=== PATIENT | female | born 1945 ===

== ENCOUNTER 2024-02-02 14:50 | Outpatient (AMB) | payer MEDICARE, SELFPAY ==
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
[2024-02-02 15:02] VITALS: BP 192/100; PULSE 75; TEMP 37.1; O2SAT 96; BMI 31.2
[2024-02-02 15:18] VITALS: BP 190/100
== END 2024-02-02 15:59 | disposition home or self-care (01) ==
PROVIDERS: PCP Internal Medicine; Visit Provider Physician Assistant
DX: I16.1 Hypertensive emergency (principal)
CPT/HCPCS: 93000; 99205

== ENCOUNTER 2024-12-28 08:59 | Outpatient (REF) | payer MEDICARE, SELFPAY ==
[2024-12-28 14:20] LABS: Resp Syncy Virus RNA Qual PCR NEGATIVE (Negative); SARS COV2 PCR INHOUSE NEGATIVE (Negative)
== END 2024-12-28 09:00 | disposition home or self-care (01) ==
LOC: HO.LNP 08:59
PROVIDERS: Nurse Practitioner Family; Visit Provider Internal Medicine
DX: R11.0 Nausea (principal); J06.9 Acute upper respiratory infection, unspecified; Z20.822 Contact with and (suspected) exposure to COVID-19
CPT/HCPCS: 87637; 99212

== ENCOUNTER 2024-12-28 08:59 | Outpatient (AMB) | payer MEDICARE, SELFPAY ==
[2024-12-28 09:06] VITALS: BP 174/76; PULSE 76; TEMP 37.1; O2SAT 95; BMI 31.1
--- NOTE | 2024-12-28 09:06 | AM.OFFWIN_ITS ---
Intake Vital Signs 12/28/24 09:06 Height 5 ft 1 in Weight 164 lb 6 oz BMI 31.1 BP 174/76 H Blood Pressure Location Rt brachial Position Sitting Pulse 76 Pulse Source Pulse Oximeter Temp 98.7 F Temp Source Oral Pulse Oximetry (%) 95 Oxygen Delivery Method Room Air Intake Visit Reasons: EP-covid symptsoms Intake Note: Patient presents with sharp abdominal pain after supper, Headache, nauseous, had diarrhea times 2 days but not today and dry heaves times 3-4 days Patient Tobacco Use Status: Never used Tobacco Contact Center Representative Required: No Is last menstrual period known: No Post menopausal: Yes Patient : No Allergies acetaminophen (From Percocet) Allergy (Severe, Verified 12/28/24 09:16) Constipation oxycodone (From Percocet) Allergy (Severe, Verified 12/28/24 09:16) Constipation Do you need a note to return to daycare/school/sports/work: No HPI EP-covid symptsoms HPI Details This is a 79-year-old female patient who presents to the walk-in clinic today with report of a 3 day history of viral symptoms including nausea, headaches, diarrhea x2, body aches. Denies known fever, however did feel hot yesterday. Has not taken anything [id number]. Denies any respiratory symptoms or cough. [facility] Social History Patient Tobacco Use Status: Never used Tobacco Patient : No Review of Systems Const All systems reviewed & are unremarkable except as noted in HPI and below Physical Exam Vital Signs: Last Vital Signs Temp 98.7 F 12/28/24 09:06 Pulse 76 12/28/24 09:06 BP 174/76 H 12/28/24 09:06 Pulse Ox 95 12/28/24 09:06 Oxygen Delivery Method Room Air 12/28/24 09:06 BMI result Body Mass Index 31.1 Const General: cooperative and ill appearing acutely HEENT Head: Yes normal to inspection Ears: hearing grossly normal bilaterally General nose exam: Normal external nose present Face and sinus: Yes normal facial exam Throat: Yes posterior oropharynx normal Neck Neck: Yes no lymphadenopathy Resp Effort & Inspection: normal respiratory effort Auscultation: clear to auscultation bilaterally Cardio Rate: regular rate Rhythm: regular rhythm GI Inspection: Yes normal to inspection Palpation (GI): Soft to palpation Auscultation: normal bowel sounds Skin General skin exam: no rashes or lesions noted Extrem General: Yes capillary refill normal and Yes no clubbing, cyanosis or edema Psych Appearance: grossly normal Mental Status: mental status grossly normal Assessment & Plan Assessment & Plan (1) Nausea: Code(s): R11.0 - Nausea Plan: Symptoms consistent with viral illness. COVID/flu/RSV swabs obtained, patient aware she will be notified of results once these are available. She states that her nausea is her worst symptom. Will prescribe ondansetron for this. We reviewed indications companies, possible side effects of medication. Otherwise, I have recommended [id number] cold/flu medication as needed, rest, hydration with electrolyte replacement. If she does not improve with time and conservative measures, or symptoms worsen/new symptoms develop, she can return to the clinic or the emergency department for further evaluation. Patient and present at visit both verbalized understanding and agreed to plan. Orders: Orders SARS-CoV2/FLU/RSV Today J06.9 - Acute upper respiratory infection, unspecified Medications: New ondansetron HCl 4 mg PO Q8H PRN 12 tabs 0RF nausea and vomiting 4 days R11.0 - Nausea Coding Level of Care Code Est Pt Level 4 (57880) Diagnoses Nausea R11.0
--- OUTSIDE RECORDS SUMMARY | 2024-12-28 09:20 | XMS_ITS | Clinical Summary ---
Author Organization [facility] Address [address] [place] [address] Care Team Providers Care Belt Puncher Name Role Phone Valarie Zepeda MD Primary Care Provider [phone] Allergies Active Allergy Reactions Criticality Noted Date Comments Oxycodone-Acetaminophen 04/18/2020 Medications Medication Sig Dispensed Refills Start Date End Date Status Aspirin Buf,NkRmep-NmYguu-IwE, 81 MG TABS Take 81 mg by mouth. 0 07/17/2019 Active Cyanocobalamin (B-12) 500 MCG TABS Take by mouth. 0 Active famotidine (PEPCID) 20 MG tablet 0 04/02/2020 Active lisinopril (PRINIVIL,ZESTRIL) tablet 20 mg 0 03/08/2020 Active Multiple Vitamin (MULTIVITAMIN) capsule 1 capsule. 0 Ac tive levothyroxine (SYNTHROID) tablet 75 mcg Take 1 tablet (75 mcg total) by mouth daily. 0 02/03/2021 Active rosuvastatin (CRESTOR) tablet 10 mg Take 1 tablet (10 mg total) by mouth daily. 0 02/03/2021 Active fluticasone (FLONASE) 50 MCG/ACT nasal spray spray/apply 1 spray in each nostril daily. 0 Active Iron-Vitamin C 65-125 MG TABS Take 1 tablet by mouth 3 (three) times a day after meals. 0 Active IRON, FERROUS SULFATE, PO Take 65 mg by mouth. 0 Active Active Problems Problem Noted Date Diagnosed Date Hypothyroid 04/18/2020 Hypertension 04/18/2020 Diverticulosis 10/19/2018 Macrocytic anemia 10/06/2018 Social History Tobacco Use Types Packs/Day Years Used Date Smoking Tobacco: Never Assessed Sex and Gender Information Value Date Recorded Sex Assigned at Not on file Gender Identity Not on file Sexual Orientation Not on file Job Start Date Occupation Industry Not on file Not on file Not on file Last Filed Vital Signs Vital Sign Reading Time Taken Comments Blood Pressure 146/52 12/22/2022 11:55 AM EDT Pulse 52 12/22/2022 11:55 AM EDT Temperature 37 C (98.6 F) 12/22/2022 11:55 AM EDT Respiratory Rate - - Oxygen Saturation 98% 12/22/2022 11:55 AM EDT Inhaled Oxygen Concentration - - Weight 79.7 kg (175 lb 9.6 oz) 12/22/2022 11:55 AM EDT Height 154.9 cm (5' 1 ) 12/22/2022 11:55 AM EDT Body Mass Index 33.18 12/22/2022 11:55 AM EDT Plan of Treatment Health Maintenance Due Date Last Done Comments Hepatitis C Screening 1945 Depression Screening 1959 Preventative Health Evaluation 1965 DTap / Tdap / Td (1 - Tdap) 1966 Fall Risk Assessment 2012 Osteoporosis Screening (DEXA Scan) 2012 RSV Adult > 60+ Yrs or (1 - 1-dose 75+ series) 2022 COVID-19 Vaccine ( season) 2024 02/15/2021, 09/05/2020, 08/15/2020 Influenza Vaccine (#1) 2025 2, 03/04/2020, 04/04/2019, Additional history exists Pneumococcal Vaccine Completed 08/10/2016, 04/25/2013, 03/04/2012 Shingrix-Zoster Vaccine Completed 07/02/2020, 03/04 Hepatitis B Vaccines Aged Out No long er eligible based on patient's age to complete this topic RSV Ped < 20 months Aged Out No longe r eligible based on patient's age to complete this topic Care Teams Belt Puncher Relationship Specialty Start Date End Date Valarie Zepeda MD PCP - General Internal Medicine 11/17/21
--- OUTSIDE RECORDS SUMMARY | 2024-12-28 09:20 | XMS_ITS | Clinical Summary ---
Author Organization [facility] Address [address] [place] [address] Phone Care Team Providers Care Fitness Assistant Name Role Phone Viv Romero MD Primary Care Provider [phone] Allergies Active Allergy Reactions Criticality Noted Date Comments Amoxicillin Diarrhea 07/20/2018 Oxycodone-Acetaminophen Other Low 06/10/2017 constipation Severe constipation Medications aspirin 81 mg EC tablet Take 1 tablet (81 mg total) by mouth 1 (one) time each day. 0 Active cyanocobalamin (VITAMIN B-12) 500 mcg tablet Take 1 tablet (500 mcg total) by mouth 1 (one) time each day. Active fluticasone propionate (FLONASE) 50 mcg/actuation nasal spray Administer 1 spray into each nostril 1 (one) time each day. Active multivitamin tablet Take 1 tablet by mouth 1 (one) time each day. Active psyllium (METAMUCIL) 0.52 gram capsule Take 1 capsule (520 mg total) by mouth 1 (one) time each day. Active levothyroxine (SYNTHROID, LEVOTHROID) 88 mcg tablet Take 1 tablet (88 mcg total) by mouth 1 (one) time each day. 90 tablet 1 5 Active lisinopriL (PRINIVIL,ZESTR IL) 20 mg tablet Take 1 tablet (20 mg total) by mouth 1 (one) time each day. 90 tablet 1 5 Active rosuvastatin (CRESTOR) 10 mg tablet Take 1 tablet (10 mg total) by mouth 1 (one) time each day. 90 tablet 1 5 Active acetaminophen (TYLENOL 8 HOUR) 650 mg 8 hr tablet Take 1 tablet (650 mg total) by mouth every 8 (eight) hours if needed for mild pain. Active Active Problems Problem Noted Date Diagnosed Date Nausea and vomiting, unspecified vomiting type 0 07/10/2024 Seasonal allergies 08/05/2023 History of bradycardia 08/05/2023 History of uterine cancer 08/05/2023 Mixed hyperlipidemia 03/23/2022 Osteopenia 09/09/2021 Carotid artery disease ([facility] V[facility]) 06/27/2019 Overview (08/05/2023): < 50 % stenosis bilaterally. S/p Carotid artery ultrasound 06/2019 Varicose veins of both legs with edema 9 GERD (gastroesophageal reflux disease) 9 Diverticulosis 10/19/2018 Osteoarthritis 10/19/2018 Macrocytic anemia 10/06/2018 Acquired hypothyroidism 06/15/2012 Overview (08/05/2023): Hypothyroidism Last Assessment & Plan: The patient's hypothyroidism may affect the presenting issue of surgical procedure (s) and may increase the risk of slow healing wound (s), infection (s), kidney, lung and/or heart problems. Stable and/or controlled chronic conditions may reduce complications associated with your chronic condition (s). Hypertension 02/12/2012 Overview (08/05/2023): Hypertensive disorder Last Assessment & Plan: The patient's hypertension may affect the presenting issue of surgical procedure (s) and may increase the risk of slow healing wound (s), infection (s), kidney, lung and/or heart problems. Stable and/or controlled chronic conditions may reduce complications associated with your chronic condition (s). Encounters Date Type Department Care Team Description 10/23/2024 9:30 AM EDT Office Visit Adult Medicine [address] [phone] Samuel Kramer PA Primary hypertension (Primary Dx); Mixed hyperlipidemia; Acquired hypothyroidism; Osteopenia, unspecified location; Macrocytic anemia; Osteoarthritis, unspecified osteoarthritis type, unspecified site from Last 3 Months Immunizations Name Administration Dates Next Due COVID-19 (Pfizer/Comirnaty) 12yo and older 05/09/2024,04/28/2023 Influenza Quadravalent, 0.5m l (Fluzone High-dose) 65yo and older 04/11/2021,03/04/2020 Influenza trivalent, 0.5mL ( Fluzone High-dose) 65yo and older 04/20/2024,04/28/2023,03/23/2022,04/04,04/06/2018,03/08/2017,02/24/2017 ,04/26/2015,05/01/2014,04/25/2012 Influenza trivalent, with pr eservative (Fluzone; Afluria) 6mo and older 04/18/2012 [employer] (age 5-11) SARS-CoV-2 COVID-19, mRNA, LNP-S, sergo-sucrose, preservative free 04/28/2023 [facility] SARS-CoV-2 COVID-19, mRNA, LNP-S, preservative free 02/15/2021,09/05/2020,08/15/2020 Pneumococcal conjugate 13 va lent (Prevnar 13, PCV13) 2mo and older 08/10/2016 Pneumococcal polysaccharide 23 valent (Pneumovax 23) 2yo and older 04/25/2013,03/04/2012 RSV, bivalent, protein subun it RSVpreF, 0.5mL, Preservative Free (ABRYSVO) 60yo and older or 32 through 36 wks of 04/20/2024 Zoster Live 04/18/2012 Zoster recombinant (Shingrix ) 19yo and older 07/02/2020,03/04/2020 Surgical History Surgery Date Site/Laterality Comments APPENDECTOMY 2015 PROCEDURE: HISTORICAL APPENDECTOMY; COMMENT: [facility] NECK SURGERY 1958 PROCEDURE: HISTORICAL NECK SURGERY; COMMENT: Excision neck tumor OTHER SURGICAL HISTORY PROCEDURE: UT DILATION & CURETTAGE DX&/THER NONOBSTETRIC; COMMENT: for SAB HYSTERECTOMY 02/2012 PROCEDURE: HISTORICAL TOTAL HYSTERECTOMY WITH BSO; COMMENT: [facility] HERNIA REPAIR 02/2015 PROCEDURE: HISTORICAL HERNIA REPAIR/KARL OTHER SURGICAL HISTORY Left PROCEDURE: UT REVISION STAPEDECTOMY/STAPEDOTOMY; COMMENT: Stapedotomy OTHER SURGICAL HISTORY PROCEDURE: UT BX/EXC LYMPH NODE OPEN SUPERFICIAL; COMMENT: Lymph node dissection HERNIA REPAIR 02/28/2018 PROCEDURE: HISTORICAL HERNIA REPAIR/UMB; COMMENT: Dr Peterson BREAST BIOPSY Left PROCEDURE: BX BREAST; PERC NEEDLE CORE W/IMAG GUID; COMMENT: neg Medical History Medical History Date Comments Seasonal allergies DX:Seasonal a llergies Hypertension DX:Hypertension Hypothyroid DX:Hypothyroid History of uterine cancer DX:His tory of uterine cancer GERD (gastroesophageal reflux disease) 9 DX:GERD (gastroesophageal reflux disease) Depression 10/19/2018 DX:Depression Migraine 10/19/2018 DX:Migraine Nephrolithiasis 10/19/2018 DX:Nephrolithias is History of bradycardia 10/19/2018 DX:Histor y of bradycardia; COMMENT: 01/2018 Switched from Atenolol to Lisinopril Osteoarthritis 10/19/2018 DX:Osteoarthriti s Macrocytic anemia 10/06/2018 DX:Macrocytic anemia Diverticulosis 10/19/2018 DX:Diverticulosi s Varicose veins of both legs with edema 9 DX:Varicose veins of both legs with edema Functional dyspepsia DX:Function al dyspepsia Family History Medical History Relation Name Comments Breast cancer Aunt 1 mat Other: cancer of the rectum Aunt 2 maternal Other: Kidney Failure Brother i n [place] Hypertension Father CAD Hypertension Mother Alzheimers Dise ase, Thyroid Disease Coronary artery disease Paternal Grandmother Bipolar disorder Sister reported lewis icide (pt does not believe it was a suicide) Colon cancer Neg Hx Ovarian cancer Neg Hx Relation Name Status Comments Aunt 1 mat Aunt 2 Brother Father Mother Paternal Grandmother Sister Social History Tobacco Use Types Packs/Day Years Used Date Smoking Tobacco: Never Smokeless Tobacco: Never Tobacco Cessation:Counseling Given: Not Answered Alcohol Use Standard Drinks/Week Comments Never 0 (1 standard drink = 0.6 oz pur e alcohol) Housing Instability Answer Date Recorde d Are you worried that in the next 2 months you may not have stable housing? No 07/11/2024 Food Access & Nutrition Answer Date Rec orded Do you have access to a vari ety of food including fruits and vegetables? Yes 07/11/2024 Access to Healthcare Answer Date Record ed Within the last 3 months, ho w many times did you visit the emergency department for your medical care? 0 07/11/2024 Health Literacy Answer Date Recorded How often do you need to hav e someone help you when you read instructions, pamphlets, or other written material from your doctor or pharmacy? Never 07/11/2024 Caregiver: How often do you need to have someone help you when you read instructions, pamphlets, or other written material from your doctor or pharmacy? Not on file 07/11/2024 Financial Risk Answer Date Recorded How hard is it for you to pa y for the very basics like food, housing, medical care, and air conditioning / heating? Not very hard 07/11/2024 Transportation Answer Date Recorded Has the lack of transportati on kept you from meetings, work, or from getting things needed for daily living? No Has the lack of transportati on kept you from medical appointments or from getting medications? No 07/11/2024 Social Isolation Answer Date Recorded How often do you feel lonely or isolated from th ose around you? Never 07/11/2024 Food Risk Answer Date Recorded Within the past 12 months we worried whether our food would run out before we got money to buy more. Never true 07/11/2024 Within the past 12 months th e food we bought just didn't last and we didn't have money to get more. Never true 07/11/2024 Dependent Care Answer Date Recorded Do you need help finding or paying for care for your loved ones. For example, child nutrition director or elderly care for an older adult? No 07/11/2024 Education Answer Date Recorded Do you think completing more education or training, like finishing a GED, going to college, or learning a trade, would be helpful for you? No 07/11/2024 Employment and Income Answer Date Recor ded During the last four weeks, have you been actively looking for work? No 07/11/2024 Living Situation Answer Date Recorded What is your living situation? 0 07/11/2024 Interpersonal Safety Answer Date Record ed Physical Abuse 07/11/2024 Verbal Abuse 07/11/2024 Comments No Sex and Gender Information Value Date Recorded Sex Assigned at Female 07/10/2024 4:03 PM EST Legal Sex Female 8:03 AM EST Gender Identity Female 07/10/2024 4:03 PM EST Sexual Orientation Straight 07/10/2024 4: 03 PM EST Obstetrics History Last Filed Vital Signs Vital Sign Reading Time Taken Comments Blood Pressure 118/78 10/23/2024 9:09 AM EDT Pulse 74 10/23/2024 9:09 AM EDT Temperature 36.7 C (98.1 F) 10/23/2024 9:09 AM EDT Respiratory Rate 12 10/23/2024 9:09 AM EDT Oxygen Saturation 96% 07/25/2024 9:25 AM EST Inhaled Oxygen Concentration - - Weight 75.4 kg (166 lb 3.2 oz) 10/23/2024 9:09 A M EDT Height 152.4 cm (5') 10/23/2024 9:09 AM EDT Body Mass Index 32.46 10/23/2024 9:09 AM EDT Plan of Treatment Upcoming Encounters Date Type Department Care Team (Late st Contact Info) Description 03/06/2025 1:30 PM EDT Office Visit Adult Medicine [address] [phone] Viv Romero MD [address] [place] [id number] Health Maintenance Due Date Last Done Comments DTaP,Tdap,and Td Vaccines (1 - Tdap) 1964 Depression Screening 05/23/2022 Hepatitis C Screening 05/23/2022 Medicare Annual Wellness Visit 05/23/2022 COVID-19 Vaccine ( season) 2024 05/09/2024, 04/28/2023, 04/28/2023, Additional history exists Influenza Vaccine (#1) 2025 , 04/28/2023, 03/23/2022, Additional history exists Social Influencers of Health Screening 07/11/2025 07/11/2024 Falls Risk Assessment 07/12/2025 07/12/2024 Hypertension/CHF/CAD Annual BMP Blood Test 07/28/2025 07/28/2024, 07/12/2024, 07/11/2024, Additional history exists Cholesterol Screening (Lipid Panel) 07/28/2029 07/28/2024, 06/25/2023 Osteoporosis Screening (Bone Density Screening) 04/13/2034 04/13/2019 Pneumococcal Vaccine: 50+ Years Completed 08/10/2016, 04/25/2013, 03/04/2012 Zoster Vaccines Completed 07/02/2020, 02/13, 04/18/2012 RSV Immunization Adult Patients Completed 04/20/2024 HIB Vaccines Aged Out No longer eligi ble based on patient's age to complete this topic HPV Vaccines Aged Out No longer eligi ble based on patient's age to complete this topic Hepatitis A Vaccines Aged Out No long er eligible based on patient's age to complete this topic Hepatitis B Vaccines Aged Out No long er eligible based on patient's age to complete this topic IPV Vaccines Aged Out No longer eligi ble based on patient's age to complete this topic MMR Vaccines Aged Out No longer eligi ble based on patient's age to complete this topic Meningococcal ACWY Vaccine Aged Out N o longer eligible based on patient's age to complete this topic Meningococcal B Vaccine Aged Out No l onger eligible based on patient's age to complete this topic RSV Immunization Patients Under 20 months Aged Out No longer eligible based on patient's age to complete this topic Varicella Vaccines Aged Out No longer eligible based on patient's age to complete this topic Procedures Procedure Name Priority Date/Time Associated Diagnosis Comments CBC WITH AUTO DIFFERENTIAL Routine 10/23/2024 10:07 AM EDT Macrocytic anemia CBC AND DIFFERENTIAL Routine 10/23/2024 10:07 AM EDT Macrocytic anemia IRON AND TIBC Routine 10/23/2024 10:07 AM EDT Macrocytic anemia THYROID STIMULATING HORMONE WITH REFLEX TO FREE T4 AND FREE T3 Routine 10/23/2024 10:07 AM EDT Acquired hypothyroidism COMPREHENSIVE METABOLIC PANEL Routine 07/28/2024 8:31 AM EST Macrocytic anemia LIPID PANEL WITH REFLEX TO DIRECT LDL Routine 07/28/2024 8:31 AM EST Mixed hyperlipidemia DXA BONE DENSITY STUDY 1+ SITS AXIAL SKEL Routine 04/13/2019 1:29 PM EDT Encounter for screening for osteoporosis from Last 3 Months or Most Recently Relevant to Health Maintenance Results * Thyroid stimulating hormone with reflex to free t4 and free t3 (10/23/2024 10:07 AM EDT) [facility] TSH 3.16 0.40 - 4.00 mcIU/mL LAB CHEMISTRY METHOD 10/23/2024 3:15 PM EDT [facility] Blood Venous blood specimen / Unknown Venipuncture / Unknown 10/23/2024 10:07 AM EDT 10/23/2024 10:07 AM EDT us Samuel AVINA LAB BLOOD ORDERABLES Final Res ult [facility] [address] [place] [address], [place] [phone] * (ABNORMAL) CBC auto differential (10/23/2024 10:07 AM EDT) [facility] WBC 8.4 4.8 - 10.8 K/mcL LAB HEMETOLOGY METHOD 10/23/2024 2:11 PM EDT [facility] RBC 2.90(L) 3.80 - 4.80 M/mcL LAB HEMETOLOGY METHOD 10/23/2024 2:11 PM EDT [facility] Hemoglobin 9.9(L) 11.5 - 16.0 g/dL LAB HEMETOLOGY METHOD 10/23/2024 2:11 PM EDT [facility] Hematocrit 30.3(L) 35.0 - 47.0 % LAB HEMETOLOGY METHOD [facility] MCV 104.8(H) 79.0 - 98.0 FL LAB HEMETOLOGY METHOD 10/23/2024 2:11 PM [facility] MCH 34.3(H) 27.0 - 32.0 pcg LAB HEMETOLOGY METHOD 10/23[facility]2024 [facility] MCHC 32.7 32.0 - 37.0 g/dL LAB HEMETOLOGY METHOD 10/23/2024 2:11 PM [facility] RDW 19.2(H) 11.0 - 15.0 % LAB HEMETOLOGY METHOD 10/23/2024 2:11 PM [facility] Platelets 332 130 - 400 K/mcL LAB HEMETOLOGY METHOD 10/23/2024 2:11 PM [facility] MPV 11.5(H) 7.0 - 11.0 FL LAB HEMETOLOGY METHOD 10/23/2024 2:11 PM [facility] NRBC 0.2 <1.0 % LAB HEMETOLOGY METHOD 10/23/2024 2:11 PM [facility] NRBC Absolute 0.02 <0.10 K/mcL LAB HEMETOLOGY METHOD 10/23/2024 2:11 PM [facility] Neutrophils Relative 70.6 % LAB HEMETOLOGY METHOD 10/23/2024 [facility] Lymphocytes Relative 19.4 % LAB HEMETOLOGY METHOD 10/23/2024 2:11 PM [facility] Monocytes Relative 7.0 % LAB HEMETOLOGY METHOD 10/23/2024 2:11 PM [facility] Eosinophils Relative 1.4 % LAB HEMETOLOGY METHOD 10/23/2024 2:11 PM EDT [facility] Basophils Relative 1.1 % LAB HEMETOLOGY METHOD 10/23/2024 2:11 PM EDT [facility] Immature Granulocytes Relative 0.5 % LAB HEMETOLOGY METHOD 10/23/2024 2:11 PM EDT [facility] Neutrophils Absolute 5.91 1.50 - 7.00 K/mcL LAB HEMETOLOGY METHOD 10/23/2024 2:11 PM EDT [facility] Lymphocytes Absolute 1.62 1.00 - 5.00 K/mcL LAB HEMETOLOGY METHOD 10/23/2024 2:11 PM EDT [facility] Monocytes Absolute 0.59 0.20 - 1.00 K/mcL LAB HEMETOLOGY METHOD 10/23/2024 2:11 PM EDT [facility] Eosinophils Absolute 0.12 0.00 - 0.50 K/mcL LAB HEMETOLOGY METHOD 10/23/2024 2:11 PM EDT [facility] Basophils Absolute 0.09 0.00 - 0.20 K/mcL LAB HEMETOLOGY METHOD 10/23/2024 2:11 PM EDT [facility] Immature Granulocytes Absolute 0.04(H) 0.00 - 0.03 K/mcL LAB HEMETOLOGY METHOD 10/23/2024 2:11 PM EDT [facility] Blood Venous blood specimen / Unknown Venipuncture / Unknown 10/23/2024 10:07 AM EDT 10/23/2024 10:07 AM EDT us Samuel AVINA LAB BLOOD ORDERABLES Final Res ult [facility] [address] [place] [address], * Iron and TIBC (10/23/2024 10:07 AM EDT) Iron 136 40 - 150 mcg/dL LAB CHEMISTRY METHOD 10/23/2024 2:51 PM EDT [facility] TIBC 291 250 - 450 mcg/dL LAB CHEMISTRY METHOD 10/23/2024 2:51 PM EDT [facility] Iron Saturation 47 15 - 50 % LAB CHEMISTRY METHOD 10/23/2024 2:51 PM EDT [facility] Blood Venous blood specimen / Unknown Venipuncture / Unknown 10/23/2024 10:07 AM EDT 10/23/2024 10:07 AM EDT Samuel AVINA LAB BLOOD ORDERABLES Final Res ult [facility] [address] [place] [address], * Lipid panel with reflex to direct LDL (07/28/2024 8:31 AM EST) [facility] Cholesterol 92 0 - 200 mg/dL LAB CHEMISTRY METHOD 07/28/2024 11:10 AM [facility] Triglycerides 34 0 - 150 mg/dL LAB CHEMISTRY METHOD 07/28/2024 11:10 AM [facility] Comment:Results verified by repeat testing HDL 62 >=40 mg/dL LAB CHEMISTRY METHOD 07/28/2024 11:10 AM [facility] LDL Calculated 23 0 - 100 mg/dL LAB CHEMISTRY METHOD 07/28/2024 11:10 AM [facility] VLDL Cholesterol Rod 6.8 mg/dL LAB CHEMISTRY METHOD 07/28/2024 11:10 AM [facility] Non HDL Chol. (LDL+VLDL) 30 <145 mg/dL LAB CHEMISTRY METHOD 07/28/2024 11:10 AM [facility] Chol/HDL Ratio 1.5 0.0 - 4.4 LAB CHEMISTRY METHOD 07/28/2024 11:10 AM [facility] Blood Venous blood specimen / Unknown Venipuncture / Unknown 07/28/2024 8:31 AM EST 07/28/2024 9:01 AM EST us Viv Romero MD LAB BLOOD ORDERABLES Final Resul t [facility] [address] [place] [address], * Comprehensive metabolic panel (07/28/2024 8:31 AM EST) Sodium 141 133 - 145 mmol/L LAB CHEMISTRY METHOD 07/28/2024 10:37 AM [facility] Potassium 4.4 3.5 - 5.5 mmol/L LAB CHEMISTRY METHOD 07/28/2024 10:37 AM [facility] Chloride 107 96 - 110 mmol/L LAB CHEMISTRY METHOD 07/28/2024 10:37 AM [facility] CO2 29 21 - 32 mmol/L LAB CHEMISTRY METHOD 07/28/2024 10:37 AM [facility] Anion Gap 5 3 - 11 LAB CHEMISTRY METHOD 07/28/2024 10:37 AM [facility] Glucose 88 70 - 100 mg/dL LAB CHEMISTRY METHOD 07/28/2024 10:37 AM [facility] BUN 19 5 - 25 mg/dL LAB CHEMISTRY METHOD 07/28/2024 10:37 AM [facility] Creatinine 0.66 0.50 - 1.10 mg/dL LAB CHEMISTRY METHOD 07/28/2024 10:37 AM [facility] eGFR 90 >=60 mL/min/1. 73m2 LAB CHEMISTRY METHOD 07/28/2024 10:37 AM [facility] Comment:Calculation based on the Chronic Kidney Disease Epidemiology Collaboration (CKD-EPI) equation refit without adjustment for race. BUN/Creatinine Ratio 28.8 LAB CHEMISTRY METHOD 07/28/2024 10:37 AM [facility] Calcium 9.3 8.5 - 10.5 mg/dL LAB CHEMISTRY METHOD 07/28/2024 10:37 AM [facility] AST (SGOT) 12 10 - 42 unit/L LAB CHEMISTRY METHOD 07/28/2024 10:37 AM [facility] ALT (SGPT) 22 10 - 60 unit/L LAB CHEMISTRY METHOD 07/28/2024 10:37 AM [facility] Alkaline Phosphatase 68 42 - 121 unit/L LAB CHEMISTRY METHOD 07/28/2024 10:37 AM [facility] Total Protein 6.5 6.0 - 8.0 g/dL LAB CHEMISTRY METHOD 07/28/2024 10:37 AM [facility] Albumin 3.9 3.2 - 5.0 g/dL LAB CHEMISTRY METHOD 07/28/2024 10:37 AM [facility] Total Bilirubin 0.8 0.0 - 1.4 mg/dL LAB CHEMISTRY METHOD 07/28/2024 10:37 AM [facility] Blood Venous blood specimen / Unknown Venipuncture / Unknown 07/28/2024 8:31 AM EST 07/28/2024 9:01 AM EST us Viv Romero MD LAB BLOOD ORDERABLES Final Resul t [facility] [address] [place] [address], * DXA BONE DENSITY STUDY 1+ SITS AXIAL SKEL (04/13/2019 1:29 PM EDT) Anatomical Region Laterality Modality Bone Densitometr y 12/28/2018 9:27 AM EDT Narrative 04/13/2019 5:44 PM EDT BONE DENSITY SCAN (DEXA): FINDINGS: Lumbar Spine T-score is -1.2. (SD relative to 20-29 y/o adult) Z-score is 1.0. (SD relative to age matched peers) This is considered osteopenia by WHO criteria. Left Hip T-score is -0.8. Z-score is 1.1. This is considered normal by WHO criteria. Comparison exam(s): None. IMPRESSION: IMPRESSION: Osteopenia by WHO criteria. This patient has a 8.6% risk of major osteoporotic fracture and a 0.9% risk of hip fracture over the next 10 years. (World Health Organization Fracture Risk Assessment) The [facility] Department of Internal Medicine recommends using National Osteoporosis Foundation (NOF) guidelines in treatment decisions related to osteoporosis. NOF guidelines suggest considering treatment for postmenopausal women and men aged 50 or older presenting with the following: History of hip or vertebral fracture. T-score = -2.5 (DXA) at the femoral neck, total hip, or spine, after appropriate evaluation to exclude secondary causes. Low bone mass (T-score between -1.0 and -2.5 at the femoral neck or spine) AND a 10-year probability of a hip fracture = 3% OR a 10-year probability of a major osteoporosis-related fracture = 20% based on the [place]-adapted WHO algorithm Please note that all treatment decisions require clinical judgment and consideration of individual patient factors, including patient preferences, co-morbidities, previous drug use, risk factors not captured in the FRAX model (e.g., frailty, falls, vitamin D deficiency, increased bone turnover, interval significant decline in bone density) and possible under- or over-estimation of fracture risk by FRAX. Optional alternative screening schedule based on abiodun Murphy., [facility] July 02, 2011 for patients with osteopenia (based on hip BMD T-score) is as follows: * advanced osteopenia (T scores -2.00 to -2.49), BMD testing every year * moderate osteopenia (T scores -1.50 to -1.99), BMD testing every 5 years mild osteopenia or normal BMD (T scores -1.50 and higher), BMD testing every 15 years Procedure Note Tiara Lees MD - 06/18/2022 BONE DENSITY SCAN (DEXA): FINDINGS: Lumbar Spine T-score is -1.2. (SD relative to 20-29 y/o adult) Z-score is 1.0. (SD relative to age matched peers) This is considered osteopenia by WHO criteria. Left Hip T-score is -0.8. Z-score is 1.1. This is considered normal by WHO criteria. Comparison exam(s): None. IMPRESSION: IMPRESSION: Osteopenia by WHO criteria. This patient has a 8.6% risk of majorosteoporotic fracture and a 0.9% risk of hip fracture over the next 10 years. (World HealthOrganization Fracture Risk Assessment) The [facility] Department of Internal Medicine recommendsusing National Osteoporosis Foundation (NOF) guidelines in treatment decisions related toosteoporosis. NOF guidelines suggest considering treatment for postmenopausal women and menaged 50 or older presenting with the following: History of hip or vertebral fracture. T-score = -2.5 (DXA) at the femoral neck, total hip, or spine, afterappropriate evaluation to exclude secondary causes. Low bone mass (T-score between -1.0 and -2.5 at the femoral neck or spine)AND a 10-year probability of a hip fracture = 3% OR a 10-year probability of a majorosteoporosis-related fracture = 20% based on the [place]-adapted WHO algorithm Please note that all treatment decisions require clinical judgment andconsideration of individual patient factors, including patient preferences, co- morbidities,previous drug use, risk factors not captured in the FRAX model (e.g., frailty, falls, vitaminD deficiency, increased bone turnover, interval significant decline in bone density) andpossible under- or over-estimation of fracture risk by FRAX. Optional alternative screening schedule based on abiodun Murphy., NEJMJanuary 2011 for patients with osteopenia (based on hip BMD T-score) is as follows: * advanced osteopenia (T scores -2.00 to -2.49), BMD testing every year * moderate osteopenia (T scores -1.50 to -1.99), BMD testing every 5years mild osteopenia or normal BMD (T scores -1.50 and higher), BMD testingevery 15 years Felton Sutherland MD [facility] DXA PROCEDURES Irina l Result from Last 3 Months or Most Recently Relevant to Health Maintenance Insurance [employer] MEDICARE Advance Directives Documents on File Type Date Recorded 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
== END 2024-12-28 09:50 | disposition home or self-care (01) ==
PROVIDERS: PCP Internal Medicine; Visit Provider Nurse Practitioner Family
DX: R11.0 Nausea (principal)